=== PATIENT | male | born 1990 | race African-American/Black ===

== ENCOUNTER 2021-07-31 07:54 | Observation (INO) ==
[2021-07-31] MEDS ORDERED: HYDROmorphone 2 MG/1 ML VIAL IV STA ×2 (08:39→10:58)
[2021-07-31] MEDS ORDERED: ONDANSETRON 4 MG/2 ML VIAL IV STA (08:39)
[2021-07-31 09:05] LABS: Basophils % 0.5 % (0.0-0.8); Eosinophils # 0.2 10*3/uL (0.0-0.87); Eosinophils % 3.2 % (0.00-10.9); Hematocrit 42.5 VOL% (42.0-52.0); Hemoglobin 13.8 GM/DL (14.0-18.0); Immature Granulocytes % 0.2 %; Immature Granulocytes Absolute 0.01 #; Lymphocytes % 30.3 % (21.2-54.2); Mean Corpuscular HGB Conc 32.5 GM/DL (32-36); Mean Platelet Volume 8.6 FL (9.6-12.0); Monocytes % 8.3 % (1.7-12.7); Neutrophils % 57.5 % (38.7-73.9); Platelet Count 387 T/CUMM (130-400); Red Blood Count 4.67 MC/CUMM (3.8-5.5); Red Cell Distribution Width 13.2 % (9.3-17.3); White Blood Count 6.6 T/CUMM (4-12)
[2021-07-31 09:23] LABS: Alanine Aminotransferase 18 U/L (16-61); Albumin 3.6 G/DL (3.4-5.0); Alkaline Phosphatase 91 U/L (45-117); Aspartate Amino Transferase 15 U/L (0-37); Bilirubin,Total < 0.39 MG/DL (0.20-1.00); Blood Urea Nitrogen 9 MG/DL (7-18); Calcium 9.4 MG/DL (8.5-10.1); Carbon Dioxide 29 MMOL/L (21-32); Estimated Glom Filtration Rate 122 ML/MIN; Glucose 98 MG/DL (74-106); Osmolality,Calculated 273.7 MOS/KG (273-304); Potassium 4.2 MMOL/L (3.5-5.1); Sodium 138 MMOL/L (136-145); Total Protein 8.1 G/DL (6.4-8.2)
[2021-07-31 09:36] LABS: Bilirubin,Urine Negative (Negative); Blood, Urine Negative (Negative); Glucose,Urine (UA) Negative (Negative); Ketones,Urine Negative (Negative); Mucus,Urine Occasional /LPF (Occasional); Nitrite,Urine Negative (Negative); Protein,Urine Negative; RBC,Urine <1 /HPF (0-4); Squamous Epithelial Cell,Urine Occasional /HPF (0-10); Urine Appearance CLEAR (Clear); Urine Color Yellow (Yellow)
[2021-07-31] MEDS ORDERED: ONDANSETRON 4 MG/2 ML VIAL IV PRN (11:10)
[2021-07-31] MEDS ORDERED: ACETAMINOPHEN 325 MG TABLET PO PRN (11:10)
[2021-07-31] MEDS ORDERED: BISACODYL 5 MG TABLET PO PRN (11:10)
[2021-07-31] MEDS ORDERED: ALBUTEROL/IPRATROPIUM 3 ML NEB RESP TX PRN (11:10)
[2021-07-31] MEDS ORDERED: guaiFENesin/CODEINE 5 ML LIQUID PO PRN (11:10)
[2021-07-31] MEDS ORDERED: NALOXONE 0.4 MG/ML VIAL IV PRN (11:15)
[2021-07-31] MEDS ORDERED: HYDROmorphone PCA 30 MG/30 ML SYRINGE IV SCH (11:30)
[2021-07-31] MEDS: LACTATED RINGERS 1,000 ML IV SCH (11:41)
[2021-07-31] MEDS: KETOROLAC 30 MG/1 ML VIAL IV SCH ×3 (11:41→22:53)
[2021-07-31 11:47] LABS: Hematocrit 40.1 VOL% (42.0-52.0)
[2021-07-31] MEDS: cefTRIAXone 1,000 MG in SODIUM CHLORIDE 0.9% 100 ML IV SCH (12:00)
[2021-07-31] MEDS: ALBUTEROL/IPRATROPIUM 3 ML NEB RESP TX SCH ×2 (13:00→19:25)
[2021-07-31 17:16] LABS: Hematocrit 38.9 VOL% (42.0-52.0); Hemoglobin 12.7 GM/DL (14.0-18.0)
[2021-07-31] MEDS ORDERED: INFLUENZA VIRUS VACCINE 0.5 ML SYRINGE IM ONE (20:26)
[2021-07-31 23:07] LABS: Hematocrit 38.5 VOL% (42.0-52.0); Hemoglobin 12.4 GM/DL (14.0-18.0)
[2021-08-01] MEDS: ALBUTEROL/IPRATROPIUM 3 ML NEB RESP TX SCH ×4 (00:50→20:15)
[2021-08-01] MEDS: LACTATED RINGERS 1,000 ML IV SCH ×2 (01:39→13:47)
[2021-08-01] MEDS: KETOROLAC 30 MG/1 ML VIAL IV SCH ×4 (05:29→22:50)
[2021-08-01 07:14] LABS: Basophils % 0.5 % (0.0-0.8); Eosinophils # 0.3 10*3/uL (0.0-0.87); Eosinophils % 4.5 % (0.00-10.9); Hematocrit 37.6 VOL% (42.0-52.0); Hemoglobin 12.4 GM/DL (14.0-18.0); Immature Granulocytes % 0.3 %; Immature Granulocytes Absolute 0.02 #; Lymphocytes # 1.3 10*3/uL (1.4-4.0); Lymphocytes % 21.5 % (21.2-54.2); Mean Corpuscular Volume 91.5 FL (87-102); Monocytes % 10.8 % (1.7-12.7); Neutrophils % 62.4 % (38.7-73.9); Platelet Count 295 T/CUMM (130-400); Red Blood Count 4.11 MC/CUMM (3.8-5.5); Red Cell Distribution Width 13.2 % (9.3-17.3)
[2021-08-01 07:32] LABS: Calcium 9.3 MG/DL (8.5-10.1); Osmolality,Calculated 274.5 MOS/KG (273-304); Potassium 3.6 MMOL/L (3.5-5.1)
[2021-08-01] MEDS: PANTOPRAZOLE 40 MG TABLET PO SCH (09:59)
[2021-08-01] MEDS: AZITHROMYCIN 250 MG TABLET PO SCH (09:59)
[2021-08-01 10:37] LABS: Hematocrit 36.9 VOL% (42.0-52.0)
[2021-08-01] MEDS: cefTRIAXone 1,000 MG in SODIUM CHLORIDE 0.9% 100 ML IV SCH (11:55)
[2021-08-02] MEDS: ALBUTEROL/IPRATROPIUM 3 ML NEB RESP TX SCH ×3 (01:47→14:00)
[2021-08-02] MEDS: LACTATED RINGERS 1,000 ML IV SCH (04:42)
[2021-08-02] MEDS: KETOROLAC 30 MG/1 ML VIAL IV SCH ×2 (05:20→11:25)
[2021-08-02 05:28] LABS: Hemoglobin 11.9 GM/DL (14.0-18.0)
[2021-08-02] MEDS: AZITHROMYCIN 250 MG TABLET PO SCH (08:59)
[2021-08-02] MEDS: PANTOPRAZOLE 40 MG TABLET PO SCH (08:59)
[2021-08-02] MEDS: cefTRIAXone 1,000 MG in SODIUM CHLORIDE 0.9% 100 ML IV SCH (11:26)
[2021-08-02 11:38] VITALS: BP 125/74
== END 2021-08-02 15:22 | disposition home or self-care (01) ==
LOC: N.EDINP 07:54 → N.ED 07:54 → N.3E 18:11
PROVIDERS: ADMIT Surgery; ATTEND Surgery